=== PATIENT | female | born 1995 | race American Indian/Alaskan Native ===

== ENCOUNTER 2016-12-05 09:35 | Emergency (ER) | payer SELFPAY ==
[2016-12-05 09:46] VITALS: BP 119/80
--- NOTE | 2016-12-05 10:12 | Emergency Department Report ---
Abscess Boil HPI - HPI Chief Complaint: Skin/Abscess/Foreign Body Stated Complaint: BOIL Time Seen by Provider: 12/05/16 09:55 Duration: >1 Week (2 weeks) Location: Upper Extremity (left axilla) Severity: Mild (4 out of 10. Sore) History: Yes Pain (pain with movement and palpation), Yes Previous History, No Fever, No Purulent Drainage, No Numbness, No Foreign Body, No Insect Bite HPI: Patient reports that she has abscess under her left axilla for a couple weeks. She said it was getting better by itself and now it was draining. Denies any drainage at present. Reports pain is 4-10 and feels sore better with rest and worse with palpation and movement. Denies any fever or chills. Denies any nausea or vomiting. No [id number] medication taken. Denies any numbness or tingling to extremities. Home Medications: Previous Rx's Medication Instructions Recorded Last Taken Type Ibuprofen [Motrin] 800 mg PO Q8HR PRN #15 tablet 12/05/16 Unknown Rx Sulfamethoxazole/Trimethoprim 1 each PO BID #20 tablet 12/05/16 Unknown Rx [Bactrim DS TAB] Allergies/Adverse Reactions: Allergies Allergy/AdvReac Type Severity Reaction Status Date / Time No Known Allergies Allergy Verified 12/05/16 09:47 ED Review of Systems ROS: Stated complaint: BOIL Other details as noted in HPI Comment: All other systems reviewed and negative Constitutional: no symptoms reported Respiratory: no symptoms reported Cardiovascular: denies: chest pain, palpitations, dyspnea on exertion, orthopnea Musculoskeletal: denies: back pain, joint swelling, arthralgia Skin: other (abscess to left axilla) Neurological: denies: headache, numbness, paresthesias ED Past Medical Hx - Past Medical History Previous Medical History?: Yes Additional medical history: Abscess - Surgical History Past Surgical History?: No - Family History Family history: no significant - Social History Smoking Status: Current Some Day Smoker Substance Use Type: Alcohol Other Social History: single - Medications Home Medications: Home Medications Medication Instructions Recorded Confirmed Last Taken Type Ibuprofen [Motrin] 800 mg PO Q8HR PRN #15 tablet 12/05/16 Unknown Rx Sulfamethoxazole/Trimethoprim 1 each PO BID #20 tablet 12/05/16 Unknown Rx [Bactrim DS TAB] ED Abscess Boil Physical Exam - Exam General: Vital signs noted. No distress. Alert and acting appropriately. This is a 21-year-old female well-nourished well-developed in no acute distress. Front/Back of Body, Lg (Color): 1 - 2 cm abscess to left axilla. Induration, no erythema noted, no fluctuance. No opening in the skin abscess. Area is tender to palpate. Unable to drain area at present due to induration and no fluctuance. Size: 2 cm Exam: Yes Tenderness (left axilla), Yes Normal Neurologic Exam, Yes Normal Circulation (extremity with 2+ pulses, no clubbing cyanosis or edema. No neurovascular compromise.), No Fluctuance, No Surrounding Cellulites/Erythema, No Lymphangitis, No Crepitation, No Heart Murmur Exam: Neck: FROM, Supple. No adenopathy. Lungs: CTAB. CV: S1S2. RRR. PSYCH: normal mood and behavior I & D Note - I & D Note I & D Note: Unable toincision and drain abscess to left axilla due to positive induration without any fluctuance. Patient instructed to apply warm compresses to affected area 3-4 times a day and plan abscess is soft if it does not drain that she can return to the emergency room in 4 days for incision and drainage. She will also be placed on Bactrim DS. ED Course Vital Signs 12/05/16 09:44 Temperature 98.5 F Pulse Rate 89 Respiratory 16 Rate Blood Pressure 119/80 O2 Sat by Pulse 100 Oximetry - Reevaluation(s) Reevaluation #1: 12/05/16 10:29 Stable Critical care attestation.: If time is entered above; I have spent that time in minutes in the direct care of this critically ill patient, excluding procedure time. ED Medical Decision Making - Medical Decision Making ED course: Patient with complaints of abscess to her left axilla for 2 weeks. She said it drained and got better but it returned. There is no drainage the abscess site. Physical findings for 2 cm abscess to left axilla that is tender to palpate. Positive induration without any fluctuance or erythema. No open dental abscess. Patient instructed to return to emergency room and 4 days after starting antibiotic and GRN before today she needs to place warm compresses to affected area 3-4 times a day to allow abscess to soften and facilitate drainage. Understanding the discharge instruction in diagnosis and discharged home in stable condition with prescription for Bactrim DS and Motrin. Patient with diagnosis of abscess to left axilla without incision and drainage and painful skin abscess. ED Disposition Clinical Impression: Abscess of left axilla, Left axillary pain Disposition: - TO HOME OR SELFCARE Is pt being admited?: No Does the pt Need Aspirin: No Condition: Stable Instructions: Abscess (ED) Additional Instructions: Take antibiotic as prescribed Follow-up with your primary care physician in 3 days Please return to the emergency room and 4 days after starting antibiotic for reevaluation of formed and possible incision and drainage if abscess is not draining on its own. Keep affected area clean and dry. Please apply warm compresses to affected area 3-4 times a day to facilitate soft and abscess. Please return to emergency room if you develop increasing redness, streaking, fever, difficulty moving in and the leftupper extremity and increase in pain. Prescriptions: Ibuprofen [Motrin] 800 mg PO Q8HR PRN #15 tablet PRN Reason: Pain Sulfamethoxazole/Trimethoprim [Bactrim DS TAB] 1 each PO BID #20 tablet Referrals: [facility] [Outside] - 2-3 Days Forms: Work/School Release Form(ED)
== END 2016-12-05 11:04 | disposition home or self-care (01) ==
LOC: ED 09:35
DX: L02.412 Cutaneous abscess of left axilla (principal); F17.210 Nicotine dependence, cigarettes, uncomplicated
CPT/HCPCS: 99282

== ENCOUNTER 2017-01-08 18:44 | Emergency (ER) | payer SELFPAY ==
[2017-01-08] MEDS ORDERED: XYLOCAINE 2%/EPI 1:100,000 INFILTRATI ONE (23:31)
[2017-01-08] MEDS ORDERED: XYLOCAINE 2%/ EPI 1:200,000 INFILTRATI ONE ×2 (23:50→23:51)
[2017-01-09 00:52] VITALS: BP 127/88
[2017-01-09] MEDS ORDERED: ZOFRAN IM ONE (01:27)
[2017-01-09] MEDS ORDERED: MORPHINE IM ONE (01:27)
[2017-01-09] MEDS ORDERED: MORPHINE ONE (01:28)
[2017-01-09] MEDS ORDERED: ZOFRAN ONE (01:28)
--- NOTE | 2017-01-09 01:34 | Emergency Department Report ---
Abscess Boil HPI - HPI Chief Complaint: Skin/Abscess/Foreign Body Stated Complaint: BOIL UNDER LEFT ARM Time Seen by Provider: 01/08/17 23:04 Duration: >1 Week Location: Other (left axilla) Severity: Moderate History: Yes Pain, Yes Previous History, Yes Insect Bite, No Fever, No Purulent Drainage, No Numbness, No Foreign Body Home Medications: Previous Rx's Medication Instructions Recorded Last Taken Type Ibuprofen [Motrin] 800 mg PO Q8HR PRN #15 tablet 12/05/16 Unknown Rx Sulfamethoxazole/Trimethoprim 1 each PO BID #20 tablet 12/05/16 Unknown Rx [Bactrim DS TAB] Clindamycin [Clindamycin CAP] 300 mg PO Q6H #40 capsule 01/09/17 Unknown Rx Ibuprofen [Motrin 600 MG tab] 600 mg PO Q6HR PRN #30 tablet 01/09/17 Unknown Rx traMADol [Ultram] 50 mg PO Q6HR PRN #20 tablet 01/09/17 Unknown Rx Allergies/Adverse Reactions: Allergies Allergy/AdvReac Type Severity Reaction Status Date / Time No Known Allergies Allergy Verified 01/08/17 18:49 ED Review of Systems ROS: Stated complaint: BOIL UNDER LEFT ARM Other details as noted in HPI Comment: All other systems reviewed and negative Constitutional: denies: chills, diaphoresis, fever, malaise, weakness, other Eyes: denies: eye pain, eye discharge, vision change ENT: denies: ear pain, throat pain, dental pain, hearing loss Respiratory: denies: see HPI, orthopnea, shortness of breath, SOB with exertion Cardiovascular: denies: chest pain, palpitations, dyspnea on exertion, orthopnea , edema, syncope, paroxysmal nocturnal dyspnea Endocrine: no symptoms reported Gastrointestinal: denies: abdominal pain, nausea, vomiting, diarrhea, constipation, hematemesis, melena Genitourinary: denies: dysuria, frequency, hematuria, discharge Musculoskeletal: denies: back pain, joint swelling, arthralgia Skin: rash (abscesses in her left axilla) Neurological: denies: headache, weakness, numbness, paresthesias, confusion, abnormal gait, vertigo ED Past Medical Hx - Past Medical History Previous Medical History?: No Additional medical history: Abscess - Surgical History Past Surgical History?: No - Social History Smoking Status: Current Some Day Smoker Substance Use Type: None - Medications Home Medications: Home Medications Medication Instructions Recorded Confirmed Last Taken Type Ibuprofen [Motrin] 800 mg PO Q8HR PRN #15 tablet 12/05/16 Unknown Rx Sulfamethoxazole/Trimethoprim 1 each PO BID #20 tablet 12/05/16 Unknown Rx [Bactrim DS TAB] Clindamycin [Clindamycin CAP] 300 mg PO Q6H #40 capsule 01/09/17 Unknown Rx Ibuprofen [Motrin 600 MG tab] 600 mg PO Q6HR PRN #30 tablet 01/09/17 Unknown Rx traMADol [Ultram] 50 mg PO Q6HR PRN #20 tablet 01/09/17 Unknown Rx ED Abscess Boil Physical Exam - Exam General: Vital signs noted. No distress. Alert and acting appropriately. I & D Note - I & D Note I & D Note: Area around abscess in left axilla was infiltrated with 2% lidocaine with epinephrine. It developed its meals was used. Abscess cleaned with bethadine solution. An 11 blade used to make an incision on the abscess. Culture specimen collected. Abscess cavity probed and loculations were broken. Abscess cavity was packed with iodoform gauze. Procedure was well tolerated ED Course Vital Signs 01/08/17 01/09/17 18:49 00:51 Temperature 98.9 F 98.7 F Pulse Rate 92 H 77 Respiratory 18 Rate Blood Pressure 130/80 Blood Pressure 127/88 [Left] O2 Sat by Pulse 100 Oximetry Critical Care Time: No Critical care attestation.: If time is entered above; I have spent that time in minutes in the direct care of this critically ill patient, excluding procedure time. ED Disposition Clinical Impression: Abscess of left axilla Disposition: - TO HOME OR SELFCARE Is pt being admited?: No Does the pt Need Aspirin: No Condition: Stable Instructions: Abscess (ED) Additional Instructions: Follow up with your PCP in the next 2-3 days Prescriptions: Clindamycin [Clindamycin CAP] 300 mg PO Q6H #40 capsule Ibuprofen [Motrin 600 MG tab] 600 mg PO Q6HR PRN #30 tablet PRN Reason: Pain traMADol [Ultram] 50 mg PO Q6HR PRN #20 tablet PRN Reason: Pain Referrals: PRIMARY CARE, [Primary Care Provider] - 3-5 Days Forms: Accompanied Note, Work/School Release Form(ED) Time of Disposition: 02:04
[2017-01-09] MEDS ORDERED: BACTRIM DS PO ONE (01:59)
== END 2017-01-09 02:15 | disposition home or self-care (01) ==
LOC: ED 18:44
DX: L02.412 Cutaneous abscess of left axilla (principal); F17.210 Nicotine dependence, cigarettes, uncomplicated
CPT/HCPCS: 10060; 87116; 96372; 99282; J2270; J2405